=== PATIENT | female | born 1990 | race Caucasian/White ===

== ENCOUNTER 2016-05-19 13:24 | Emergency (ER) | payer OTHER ==
[2016-05-19 15:18] LABS: BASOPHILS # (AUTO) 0.1 10^3/uL (0.0-0.1); BASOPHILS % (AUTO) 0.7 %; EOSINOPHILS # (AUTO) 0.1 10^3/uL (0.0-0.7); EOSINOPHILS % (AUTO) 1.5 %; HCT - HEMATOCRIT 43.2 % (37.0-47.0); HGB - HEMOGLOBIN 15.1 g/dL (12.0-16.0); LYMPHOCYTES # (AUTO) 2.3 10^3/uL (1.5-3.5); LYMPHOCYTES % (AUTO) 27.7 %; MEAN CORPUSCULAR HEMOGLOBIN 30.7 pg (27.0-31.0); MEAN CORPUSCULAR HGB CONC 35.1 g/dL (32.0-36.0); MEAN CORPUSCULAR VOLUME 87.6 fL (81.0-99.0); MEAN PLATELET VOLUME 8.5 fL (7.9-10.8); MONOCYTES # (AUTO) 0.5 10^3/uL (0.0-1.0); MONOCYTES % (AUTO) 5.9 %; NEUTROPHILS # (AUTO) 5.3 10^3/uL (1.5-6.6); NEUTROPHILS % (AUTO) 64.2 %; RED BLOOD COUNT 4.93 10^6/uL (4.20-5.40); RED CELL DISTRIBUTION WIDTH 13.4 % (12.0-15.0); UNCORRECTED WHITE BLOOD COUNT 8.3 x10^3/uL; WHITE BLOOD COUNT 8.3 x10^3/uL (4.8-10.8)
[2016-05-19 15:32] LABS: ALBUMIN/GLOBULIN RATIO 1.4 (1.0-2.2); BILIRUBIN,TOTAL 1.5 mg/dL (0.2-1.0); CALCIUM 9.8 mg/dL (8.5-10.3); CREATININE 0.8 mg/dL (0.4-1.0); POTASSIUM 4.1 mmol/L (3.5-5.0); TOTAL PROTEIN 8.1 g/dL (6.7-8.2)
--- NOTE | 2016-05-19 15:47 | ED Physician Documentation ---
History of Present Illness - Stated complaint Stated Complaint: FEMALE - Chief complaint Chief Complaint: General - History obtained from History obtained from: Patient - History of Present Illness Timing: Today (25-year-old woman with long history of hematochezia. Had a colonoscopy with her GI doctor in [place] where she lives which showed mild colitis but nothing else. Had heavier hematochezia today with blood on the toilet paper and in the bowl. There is no rectal pain. She's had external hemorrhoids before and is sure that she does not have one currently. 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: None : None HEENT: None Psych: None Musculoskeletal: None Derm: None - Past Surgical History Past Surgical History: Yes /DESIGN TRANSFERRER: section - Present Medications Home Medications: Ambulatory Orders Medication Instructions Recorded Confirmed Levonorgestrel [Mirena] 1 each IY 05/19/16 - Allergies Allergies/Adverse Reactions: Allergies Allergy/AdvReac Type Severity Reaction Status Date / Time No Known Drug Allergies Allergy Verified 04/22/15 14:38 - Social History Does the pt smoke?: No Smoking Status: Never smoker Does the pt drink ETOH?: Yes Does the pt have substance abuse?: No - Immunizations Immunizations are current?: No PD ED PE NORMAL - Vitals Vital signs reviewed: Yes - General General: Alert and oriented X 3, No acute distress - Abdomen Abdomen: Soft, Non tender - Rectal Rectal: Pt declined - Neuro Neuro: Alert and oriented X 3, Normal speech Results - Vitals Vitals: Vital Signs - 24 hr 05/19/16 13:28 Temperature 36.1 C L Heart Rate 73 Respiratory 20 Rate Blood Pressure 134/70 H O2 Saturation 98 Oxygen O2 Source Room air - Labs Labs: Laboratory Tests 05/19/16 05/19/16 15:10 15:10 WBC 8.3 RBC 4.93 Hgb 15.1 Hct 43.2 MCV 87.6 MCH 30.7 MCHC 35.1 RDW 13.4 Plt Count 206 MPV 8.5 Neut # 5.3 Lymph # 2.3 [place] # 0.5 Eos # 0.1 Baso # 0.1 Absolute Nucleated RBC 0.00 Nucleated RBCs 0.0 Sodium 139 Potassium 4.1 Chloride 105 Carbon Dioxide 27 Anion Gap 7.0 BUN 16 Creatinine 0.8 Estimated GFR (MDRD) 88 L Glucose 89 Calcium 9.8 Total Bilirubin 1.5 H AST 18 ALT 19 Alkaline Phosphatase 72 Total Protein 8.1 Albumin 4.7 Globulin 3.4 Albumin/Globulin Ratio 1.4 Lipase 21 L PD MEDICAL DECISION MAKING - ED course ED course: 25-year-old woman with hematochezia, H&H is good as are her vital signs. She is sure she doesn't have an external hemorrhoid and declined rectal examination. Advised stool softening as she is chronically constipated. Departure - Departure Disposition: 01 Home, Self Care Clinical Impression: Hematochezia Condition: Good Record reviewed to determine appropriate education?: Yes Instructions: ED Hematochezia Stable Comments: I recommend taking [id number] Citrucel to soften your stools and drink plenty of water. Return if worse, follow up with your GI Dr. on return home. Your blood pressure was elevated today on check in to the emergency department. This does not mean that you have hypertension, it is a common phenomenon to check into the emergency department and have elevated blood pressure. I recommend that you see your primary care physician within the week to have it rechecked when you're feeling better.
[2016-05-19 15:55] VITALS: BP 134/81
== END 2016-05-19 15:53 | disposition home or self-care (01) ==
LOC: ED 13:24
DX: K92.1 Melena (principal); R03.0 Elevated blood-pressure reading, without diagnosis of hypertension
CPT/HCPCS: 36415; 80053; 83690; 85025; 99283

== ENCOUNTER 2018-08-05 20:53 | Outpatient (CLI) | payer OTHER | END 2018-08-05 20:54 | disposition critical access hospital (66) | LOC: EMS 20:53 | PROVIDERS: ATTEND Surgery | DX: R55 Syncope and collapse (principal); R10.9 Unspecified abdominal pain | CPT/HCPCS: A0425; A0429 ==

== ENCOUNTER 2018-08-05 21:20 | Emergency (ER) | payer OTHER ==
[2018-08-05 21:54] LABS: BILIRUBIN,URINE NEGATIVE (NEGATIVE); GLUCOSE, URINE (UA) NEGATIVE (NEGATIVE); KETONES,URINE (UA) NEGATIVE (NEGATIVE); LEUKOCYTE ESTERASE, URINE NEGATIVE (NEGATIVE); NITRITE,URINE NEGATIVE (NEGATIVE); OCCULT BLOOD,URINE NEGATIVE (NEGATIVE); PH,URINE 6.5 PH (5.0-7.5); PROTEIN,URINE NEGATIVE (NEGATIVE); UROBILINOGEN,URINE 0.2 (NORMAL) E.U./dL (NORMAL)
[2018-08-05 21:57] LABS: CLARITY,URINE CLEAR (CLEAR); HCG UR QUAL NEGATIVE
[2018-08-05 22:07] LABS: BASOPHILS % (AUTO) 0.5 %; EOSINOPHILS # (AUTO) 0.3 10^3/uL (0.0-0.7); EOSINOPHILS % (AUTO) 4.5 %; HGB - HEMOGLOBIN 13.9 g/dL (12.0-16.0); LYMPHOCYTES # (AUTO) 2.6 10^3/uL (1.5-3.5); LYMPHOCYTES % (AUTO) 34.3 %; MEAN CORPUSCULAR HEMOGLOBIN 31.1 pg (27.0-31.0); MEAN CORPUSCULAR HGB CONC 33.9 g/dL (32.0-36.0); MEAN CORPUSCULAR VOLUME 91.7 fL (81.0-99.0); MEAN PLATELET VOLUME 10.4 fL (7.9-10.8); MONOCYTES # (AUTO) 0.5 10^3/uL (0.0-1.0); MONOCYTES % (AUTO) 6.6 %; NEUTROPHILS # (AUTO) 4.1 10^3/uL (1.5-6.6); PLT - PLATELET COUNT 187 10^3/uL (130-450); RED BLOOD COUNT 4.47 10^6/uL (4.20-5.40); WHITE BLOOD COUNT 7.6 x10^3/uL (4.8-10.8)
[2018-08-05 22:21] LABS: ALBUMIN 4.5 g/dL (3.2-5.5); ALBUMIN/GLOBULIN RATIO 1.4 (1.0-2.2); BILIRUBIN,TOTAL 1.3 mg/dL (0.2-1.0); CALCIUM 9.3 mg/dL (8.5-10.3); CREATININE 0.7 mg/dL (0.4-1.0); TOTAL PROTEIN 7.7 g/dL (6.7-8.2)
--- NOTE | 2018-08-05 22:51 | ED Physician Documentation ---
History of Present Illness - Stated complaint Stated Complaint: NEAR SYNCOPE X SEVERAL MONTHS - Chief complaint Chief Complaint: Neuro - History obtained from History obtained from: Patient - History of Present Illness Timing: Today Pain level max: 0 Pain level now: 0 Improved by: nothing Worsened by: nothing - Additonal information Additional information: 27-year-old female presents to the emergency department stating that she felt lightheaded tonight. This lasted for approximately 1 minute. She has had similar episodes over the past week, most occurring at night. Does have a history of paroxysmal atrial fibrillation in the past. She states that she does feel her heart racing during these episodes as well. Has not taken her pulse. No chest pain. No possibility of . No nausea or vomiting. 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 - Present Medications Home Medications: Ambulatory Orders Medication Instructions Recorded Confirmed Levonorgestrel [Mirena] 1 each IY 05/19/16 - Allergies Allergies/Adverse Reactions: Allergies Allergy/AdvReac Type Severity Reaction Status Date / Time No Known Drug Allergies Allergy Verified 04/22/15 14:38 - Social History Does the pt smoke?: No Smoking Status: Never smoker Does the pt drink ETOH?: Yes Does the pt have substance abuse?: No - Immunizations Immunizations are current?: No PD ED PE NORMAL - Vitals Vital signs reviewed: Yes - General General: Alert and oriented X 3, No acute distress, Well developed/nourished - HEENT HEENT: Atraumatic, PERRL, Moist mucous membranes - Neck Neck: Supple, no meningeal sign - Cardiac Cardiac: RRR, No murmur. No: Strong equal pulses - Respiratory Respiratory: No respiratory distress, Clear bilaterally - Abdomen Abdomen: Soft, Non tender, Non distended - Derm Derm: Warm and dry, No rash - Extremities Extremities: No edema, No calf tenderness / cord - Neuro Neuro: Alert and oriented X 3 - Psych Psych: Normal mood, Normal affect Results - Vitals Vitals: Vital Signs - 24 hr 08/05/18 08/05/18 21:25 22:59 Temperature 36.6 C 36.2 C L Heart Rate 72 68 Respiratory 17 18 Rate Blood Pressure 120/83 H 103/78 O2 Saturation 97 97 Oxygen O2 Source Room air - EKG (time done) 2138 Rate: Rate (enter#) (75) Rhythm: NSR [place]: Normal Intervals: Normal [place] QRS: Normal Ischemia: Normal ST segments - Labs Labs: Laboratory Tests 08/05/18 08/05/18 08/05/18 21:35 21:35 21:44 WBC RBC Hgb Hct MCV MCH MCHC RDW Plt Count MPV Neut # (Auto) Lymph # (Auto) [place] # (Auto) Eos # (Auto) Baso # (Auto) Absolute Nucleated RBC Nucleated RBC % Sodium Potassium Chloride Carbon Dioxide Anion Gap BUN Creatinine Estimated GFR (MDRD) Glucose POC Whole Bld Glucose 80 Calcium Total Bilirubin AST ALT Alkaline Phosphatase Total Protein Albumin Globulin Albumin/Globulin Ratio Lipase Urine Color YELLOW Urine Clarity CLEAR Urine pH 6.5 Ur Specific [place] <=1.005 <=1.005 Urine Protein NEGATIVE Urine Glucose (UA) NEGATIVE Urine Ketones NEGATIVE Urine Occult Blood NEGATIVE Urine Nitrite NEGATIVE Urine Bilirubin NEGATIVE Urine Urobilinogen 0.2 (NORMAL) Ur Leukocyte Esterase NEGATIVE Ur Microscopic Review NOT INDICATED Urine Culture Comments NOT INDICATED Urine HCG, Qual NEGATIVE 08/05/18 08/05/18 21:59 21:59 WBC 7.6 RBC 4.47 Hgb 13.9 Hct 41.0 MCV 91.7 MCH 31.1 H MCHC 33.9 RDW 12.0 Plt Count 187 MPV 10.4 Neut # (Auto) 4.1 Lymph # (Auto) 2.6 [place] # (Auto) 0.5 Eos # (Auto) 0.3 Baso # (Auto) 0.0 Absolute Nucleated RBC 0.00 Nucleated RBC % 0.0 Sodium 139 Potassium 4.0 Chloride 104 Carbon Dioxide 27 Anion Gap 8.0 BUN 20 Creatinine 0.7 Estimated GFR (MDRD) 101 Glucose 90 POC Whole Bld Glucose Calcium 9.3 Total Bilirubin 1.3 H AST 18 ALT 18 Alkaline Phosphatase 73 Total Protein 7.7 Albumin 4.5 Globulin 3.2 Albumin/Globulin Ratio 1.4 Lipase 32 Urine Color Urine Clarity Urine pH Ur Specific [place] Urine Protein Urine Glucose (UA) Urine Ketones Urine Occult Blood Urine Nitrite Urine Bilirubin Urine Urobilinogen Ur Leukocyte Esterase Ur Microscopic Review Urine Culture Comments Urine HCG, Qual PD MEDICAL DECISION MAKING - ED course Complexity details: reviewed results, re-evaluated patient, considered differential, d/w patient ED course: 27-year-old female with what sounds like intermittent episodes of palpitations leading to lightheadedness. Possible recurrence of her paroxysmal atrial fibrillation. Recommend a Holter monitor and follow-up closely with her doctor. No findings on business continuity specialist here. She was asymptomatic while in the emergency department. Patient counseled regarding signs and symptoms for which I believe and urgent re-evaluation would be necessary. Patient with good understanding of and agreement to plan and is comfortable going home at this time This document was made in part using voice recognition software. While efforts are made to proofread this document, sound alike and grammatical errors may occur. Departure - Departure Disposition: 01 Home, Self Care Clinical Impression: Palpitations, Near syncope Condition: Good Health Concerns: lightheaded Plan of Treatment: holter monitor with PCP Care Goals: find cause Assessment: see dx Instructions: ED Palpitations, ED Near Syncope Unkn Follow-Up: your,doctor in 1 week [Other] Comments: Follow-up with your doctor for further care. You should have a Holter monitor as it is possible that you are having short runs of atrial fibrillation. Return if you worsen Discharge Date/Time: 08/05/18 22:58
[2018-08-05 22:59] VITALS: BP 103/78
== END 2018-08-05 22:58 | disposition home or self-care (01) ==
LOC: EDUNIT# → ED 21:20
DX: R55 Syncope and collapse (principal); R00.2 Palpitations; Z86.79 Personal history of other diseases of the circulatory system
CPT/HCPCS: 36415; 80053; 81001; 81003; 81025; 83690; 85025; 87086; 93005; 99282; 99283

== ENCOUNTER 2018-10-18 16:27 | Emergency (ER) | payer OTHER ==
--- NOTE | 2018-10-18 16:49 | ED Physician Documentation ---
History of Present Illness - Stated complaint Stated Complaint: FEMALE PX - Chief complaint Chief Complaint: Abd Pain - History obtained from History obtained from: Patient - History of Present Illness Timing: How many weeks ago (1) Pain level max: 8 Pain level now: 6 Improved by: nothing Worsened by: nothing - Additonal information Additional information: R pelvic pain x 1 week. feels similar to prior ovarian cysts. Has paraguard IUD. Is . 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 - Present Medications Home Medications: Ambulatory Orders Medication Instructions Recorded Confirmed Levonorgestrel [Mirena] 1 each IY 05/19/16 - Allergies Allergies/Adverse Reactions: Allergies Allergy/AdvReac Type Severity Reaction Status Date / Time No Known Drug Allergies Allergy Verified 10/18/18 16:33 - Social History Does the pt smoke?: No Smoking Status: Never smoker Does the pt drink ETOH?: Yes Does the pt have substance abuse?: No - Immunizations Immunizations are current?: No PD ED PE NORMAL - Vitals Vital signs reviewed: Yes - General General: Alert and oriented X 3, No acute distress - HEENT HEENT: Moist mucous membranes - Neck Neck: Supple, no meningeal sign - Cardiac Cardiac: RRR - Respiratory Respiratory: No respiratory distress, Clear bilaterally - Abdomen Abdomen: Soft, Other (TTP R pelvic, no tenderness at McBurney's point.) - Female Female : Pt declined - Back Back: No CVA TTP, No spinal TTP - Derm Derm: Warm and dry - Extremities Extremities: No edema - Neuro Neuro: Alert and oriented X 3 Results - Vitals Vitals: Vital Signs - 24 hr 10/18/18 10/18/18 16:30 18:55 Temperature 36.4 C L 36.8 C Heart Rate 120 H 87 Respiratory 19 18 Rate Blood Pressure 129/83 H 121/81 H O2 Saturation 97 97 Oxygen O2 Source Room air - Labs Labs: Laboratory Tests 10/18/18 10/18/1819 16:55 17:15 17:15 WBC 6.5 RBC 4.07 L Hgb 13.0 Hct 37.4 MCV 91.9 MCH 31.9 H MCHC 34.8 RDW 12.7 Plt Count 182 MPV 10.2 Neut # (Auto) 4.1 Lymph # (Auto) 1.8 [place] # (Auto) 0.4 Eos # (Auto) 0.1 Baso # (Auto) 0.0 Absolute Nucleated RBC 0.00 Nucleated RBC % 0.0 Sodium 139 Potassium 4.0 Chloride 106 Carbon Dioxide 26 Anion Gap 7.0 BUN 16 Creatinine 0.5 Estimated GFR (MDRD) 148 Glucose 118 H Calcium 8.9 Total Bilirubin 1.1 H AST 12 ALT 13 Alkaline Phosphatase 55 Total Protein 6.9 Albumin 4.1 Globulin 2.8 Albumin/Globulin Ratio 1.5 Lipase 32 Urine Color YELLOW Urine Clarity CLEAR Urine pH 6.0 Ur Specific [place] 1.015 Urine Protein NEGATIVE Urine Glucose (UA) NEGATIVE Urine Ketones NEGATIVE Urine Occult Blood NEGATIVE Urine Nitrite NEGATIVE Urine Bilirubin NEGATIVE Urine Urobilinogen 0.2 (NORMAL) Ur Leukocyte Esterase NEGATIVE Ur Microscopic Review NOT INDICATED Urine Culture Comments NOT INDICATED Urine HCG, Qual NEGATIVE - Rads (name of study) Pelvic ultrasound Radiology: Prelim report reviewed, EMP read contemporaneously, See rad report (Normal) PD MEDICAL DECISION MAKING - ED course Complexity details: reviewed results, re-evaluated patient, considered differential, d/w patient ED course: 28-year-old female presents to the emergency department with right pelvic pain. No acute findings on ultrasound or laboratory testing. She states that she has been working out recently and this is new for her. Possible that this is musculoskeletal? No evidence of appendicitis, ovarian torsion, PID. Her has been deployed since June and she has not been sexually active since that time. No risk factors for STDs. Patient counseled regarding signs and symptoms for which I believe and urgent re-evaluation would be necessary. Patient with good understanding of and agreement to plan and is comfortable going home at this time This document was made in part using voice recognition software. While efforts are made to proofread this document, sound alike and grammatical errors may occur. Departure - Departure Disposition: 01 Home, Self Care Clinical Impression: Pelvic pain Condition: Good Instructions: ED Pelvic Pain [facility] Follow-Up: Jose L Leong ARNP [Primary Care Provider] - Within 1 week Comments: The cause of your symptoms is unclear today. This may be related to musculoskeletal issue. Return if you worsen. Follow-up with your doctor in 1 week if not better. Discharge Date/Time: 10/18/18 19:01
[2018-10-18 16:58] LABS: BILIRUBIN,URINE NEGATIVE (NEGATIVE); GLUCOSE, URINE (UA) NEGATIVE (NEGATIVE); KETONES,URINE (UA) NEGATIVE (NEGATIVE); LEUKOCYTE ESTERASE, URINE NEGATIVE (NEGATIVE); NITRITE,URINE NEGATIVE (NEGATIVE); OCCULT BLOOD,URINE NEGATIVE (NEGATIVE); PROTEIN,URINE NEGATIVE (NEGATIVE); UROBILINOGEN,URINE 0.2 (NORMAL) E.U./dL (NORMAL)
[2018-10-18 17:04] LABS: CLARITY,URINE CLEAR (CLEAR); HCG UR QUAL NEGATIVE
[2018-10-18 17:24] LABS: BASOPHILS % (AUTO) 0.5 %; EOSINOPHILS # (AUTO) 0.1 10^3/uL (0.0-0.7); EOSINOPHILS % (AUTO) 2.2 %; LYMPHOCYTES # (AUTO) 1.8 10^3/uL (1.5-3.5); MEAN CORPUSCULAR HEMOGLOBIN 31.9 pg (27.0-31.0); MEAN CORPUSCULAR HGB CONC 34.8 g/dL (32.0-36.0); MEAN CORPUSCULAR VOLUME 91.9 fL (81.0-99.0); MEAN PLATELET VOLUME 10.2 fL (7.9-10.8); MONOCYTES # (AUTO) 0.4 10^3/uL (0.0-1.0); MONOCYTES % (AUTO) 6.8 %; NEUTROPHILS # (AUTO) 4.1 10^3/uL (1.5-6.6); NEUTROPHILS % (AUTO) 63.3 %; PLT - PLATELET COUNT 182 10^3/uL (130-450); RED BLOOD COUNT 4.07 10^6/uL (4.20-5.40); RED CELL DISTRIBUTION WIDTH 12.7 % (12.0-15.0); WHITE BLOOD COUNT 6.5 x10^3/uL (4.8-10.8)
[2018-10-18 17:37] LABS: ALBUMIN 4.1 g/dL (3.2-5.5); ALBUMIN/GLOBULIN RATIO 1.5 (1.0-2.2); BILIRUBIN,TOTAL 1.1 mg/dL (0.2-1.0); CALCIUM 8.9 mg/dL (8.5-10.3); CREATININE 0.5 mg/dL (0.4-1.0); TOTAL PROTEIN 6.9 g/dL (6.7-8.2)
--- NOTE | 2018-10-18 18:53 | Ultrasound Report ---
Reason: pelvic pain, R Procedure Date: 10/18/2018 Accession Number: [id number] / [id number] Procedure: US - Pelvic w/Transvag+Doppler Comp CPT Code: FULL RESULT: EXAM: PELVIC ULTRASOUND EXAM DATE: 10/18/2018 06:22 PM. CLINICAL HISTORY: Pelvic pain COMPARISON: None. TECHNIQUE: Realtime transabdominal pelvic scan performed to identify the uterus and adnexa and as an overview of other pelvic structures, followed by transvaginal scan to provide greater detail of the uterus and adnexa, with static image documentation. FINDINGS: Uterus: 8.5 x 5.2 x 5.7 cm, volume 133 cc. Retroverted position. Normal overall size and echotexture. Masses: None. Endometrium: 7 mm. Intrauterine device is in expected position. Cervix: Unremarkable. Right Ovary: 2.6 x 1.7 x 3.2 cm, volume 7.1 cc. Normal echotexture and blood flow. Left Ovary: 2.5 x 1.3 x 1.5 cm, volume 2.5 cc. Normal echotexture and blood flow. Free Fluid: There is a small amount of simple appearing free fluid within the pelvis. Other: None. IMPRESSION: Negative pelvic ultrasound. RADIA
[2018-10-18 18:56] VITALS: BP 121/81
== END 2018-10-18 19:01 | disposition home or self-care (01) ==
LOC: ED 16:27
DX: R10.2 Pelvic and perineal pain (principal); Z97.5 Presence of (intrauterine) contraceptive device; Z87.42 Personal history of other diseases of the female genital tract
CPT/HCPCS: 36415; 76830; 76856; 80053; 81001; 81003; 81025; 83690; 85025; 87086; 93975; 99283; 99284

== ENCOUNTER 2020-01-13 04:05 | Emergency (ER) | payer OTHER ==
--- NOTE | 2020-01-13 04:43 | ED Physician Documentation ---
PD HPI ABD PAIN - Stated complaint Stated Complaint: CHEST/BACK PX/NAUSEA - Chief complaint Chief Complaint: Abd Pain - History obtained from History obtained from: Patient - History of Present Illness Timing - onset: How many hours ago (2-3) Timing - details: Abrupt onset, Intermittant Pain level max: 8 Pain level now: 6 Quality: Pain Location: RUQ, Epigastric Radiation: Right flank Improved by: Other (nothing) Worsened by: Other (no exacerbating factors) Associated symptoms: Nausea. No: Fever, Vomiting, Diarrhea Similar symptoms before: Has not had sx before Review of Systems Constitutional: reports: Reviewed and negative Cardiac: reports: Reviewed and negative Respiratory: reports: Reviewed and negative GI: reports: Abdominal Pain, Nausea. denies: Vomiting : denies: Dysuria, Frequency, Now EGA Musculoskeletal: reports: Back pain PD PAST MEDICAL HISTORY - Past Medical History Past Medical History: Yes Cardiovascular: None Respiratory: None Neuro: None Endocrine/Autoimmune: None GI: None SLEEP TECH: None : None HEENT: None Psych: None Musculoskeletal: None Derm: None Other Past Medical History: Post abdominal hernia - Past Surgical History Past Surgical History: Yes General: Colonoscopy /SLEEP TECH: section - Present Medications Home Medications: Ambulatory Orders Medication Instructions Recorded Confirmed Levonorgestrel [Mirena] 1 each IY 05/19/16 - Allergies Allergies/Adverse Reactions: Allergies Allergy/AdvReac Type Severity Reaction Status Date / Time No Known Drug Allergies Allergy Verified 01/13/20 04:16 - Social History Does the pt smoke?: No Smoking Status: Never smoker Does the pt drink ETOH?: Yes Does the pt have substance abuse?: No - Immunizations Immunizations are current?: No - POLST Patient has POLST: No PD ED PE NORMAL - Vitals Vital signs reviewed: Yes - General General: Alert and oriented X 3, Well developed/nourished, Other (appears to be in waxing and waning discomfort during H&P) - HEENT HEENT: Moist mucous membranes - Cardiac Cardiac: RRR, No murmur - Respiratory Respiratory: No respiratory distress - Abdomen Abdomen: Soft, Non tender, Non distended - Back Back: No CVA TTP Results - Vitals Vitals: Vital Signs - 24 hr 01/13/20 01/13/20 08:08 08:26 Temperature 36.6 C Heart Rate 80 75 Respiratory 17 16 Rate Blood Pressure 113/76 110/63 O2 Saturation 97 100 Oxygen O2 Source Room air - Labs Labs: Laboratory Tests 01/13/20 01/13/20 01/13/20 04:49 05:03 05:03 WBC 9.3 RBC 4.32 Hgb 13.5 Hct 38.9 MCV 90.0 MCH 31.3 H MCHC 34.7 RDW 12.1 Plt Count 195 MPV 9.7 Neut # (Auto) 7.0 H Lymph # (Auto) 1.6 [place] # (Auto) 0.5 Eos # (Auto) 0.1 Baso # (Auto) 0.1 Absolute Nucleated RBC 0.00 Nucleated RBC % 0.0 Sodium 137 Potassium 4.2 Chloride 103 Carbon Dioxide 25 Anion Gap 9.0 BUN 16 Creatinine 0.6 Estimated GFR (MDRD) 119 Glucose 112 H Calcium 9.0 Total Bilirubin 1.0 AST 16 ALT 16 Alkaline Phosphatase 56 Total Protein 7.4 Albumin 4.1 Globulin 3.3 Albumin/Globulin Ratio 1.2 Lipase 25 Urine Color YELLOW Urine Clarity CLEAR Urine pH 6.0 Ur Specific [place] 1.015 Urine Protein NEGATIVE Urine Glucose (UA) NEGATIVE Urine Ketones NEGATIVE Urine Occult Blood NEGATIVE Urine Nitrite NEGATIVE Urine Bilirubin NEGATIVE Urine Urobilinogen 0.2 (NORMAL) Ur Leukocyte Esterase NEGATIVE Ur Microscopic Review NOT INDICATED Urine Culture Comments NOT INDICATED Urine HCG, Qual NEGATIVE - Rads (name of study) RUQ US Radiology: Prelim report reviewed, See rad report PD MEDICAL DECISION MAKING - ED course Complexity details: reviewed results, re-evaluated patient, considered differential, d/w patient ED course: asleep on reevaluation, reports feeling much better with only mild residual right back pain. declines analgesics im ED except toradol and declined rx analgesics. cholelithiasis on US but normal LFTs, lipase, and WBC and symptoms mild even before toradol given. instructed to return if worse, f/u with surgeon outpatient Departure - Departure Disposition: 01 Home, Self Care Clinical Impression: Biliary colic Condition: Good Instructions: ED Gallstone W Biliary Colic [facility] Chris Aldana MD [Provider Admit Priv/Credential] - Discharge Date/Time: 01/13/20 08:31
[2020-01-13] MEDS ORDERED: SODIUM CHLORIDE 0.9% 1,000 ML IV STA (04:44)
[2020-01-13 05:05] LABS: BILIRUBIN,URINE NEGATIVE (NEGATIVE); CLARITY,URINE CLEAR (CLEAR); GLUCOSE, URINE (UA) NEGATIVE (NEGATIVE); KETONES,URINE (UA) NEGATIVE (NEGATIVE); LEUKOCYTE ESTERASE, URINE NEGATIVE (NEGATIVE); NITRITE,URINE NEGATIVE (NEGATIVE); OCCULT BLOOD,URINE NEGATIVE (NEGATIVE); PROTEIN,URINE NEGATIVE (NEGATIVE); UROBILINOGEN,URINE 0.2 (NORMAL) E.U./dL (NORMAL)
[2020-01-13 05:07] LABS: HCG UR QUAL NEGATIVE
[2020-01-13 05:08] LABS: BASOPHILS # (AUTO) 0.1 10^3/uL (0.0-0.1); BASOPHILS % (AUTO) 0.5 %; EOSINOPHILS # (AUTO) 0.1 10^3/uL (0.0-0.7); HGB - HEMOGLOBIN 13.5 g/dL (12.0-16.0); LYMPHOCYTES # (AUTO) 1.6 10^3/uL (1.5-3.5); LYMPHOCYTES % (AUTO) 17.5 %; MEAN CORPUSCULAR HEMOGLOBIN 31.3 pg (27.0-31.0); MEAN CORPUSCULAR HGB CONC 34.7 g/dL (32.0-36.0); MEAN PLATELET VOLUME 9.7 fL (7.9-10.8); MONOCYTES # (AUTO) 0.5 10^3/uL (0.0-1.0); MONOCYTES % (AUTO) 5.1 %; NEUTROPHILS % (AUTO) 75.6 %; PLT - PLATELET COUNT 195 10^3/uL (130-450); RED BLOOD COUNT 4.32 10^6/uL (4.20-5.40); RED CELL DISTRIBUTION WIDTH 12.1 % (12.0-15.0); WHITE BLOOD COUNT 9.3 x10^3/uL (4.8-10.8)
[2020-01-13 05:21] LABS: ALBUMIN 4.1 g/dL (3.2-5.5); ALBUMIN/GLOBULIN RATIO 1.2 (1.0-2.2); CREATININE 0.6 mg/dL (0.4-1.0); TOTAL PROTEIN 7.4 g/dL (6.7-8.2)
[2020-01-13] MEDS ORDERED: KETOROLAC 30 MG/ML VIAL IVP STA (07:55)
[2020-01-13 08:26] VITALS: BP 110/63
--- NOTE | 2020-01-13 08:33 | Ultrasound Report ---
PROCEDURE: Abdomen Limited INDICATIONS: Abdominal pain TECHNIQUE: Real-time focused scanning was performed of the abdomen, with image documentation. COMPARISON: None FINDINGS: Visualized portions of the pancreas are within normal limits. No pancreatic ductal dilatation. Normal hepatic parenchymal echogenicity, echotexture, and contour. Normal caliber main portal vein. N o intrahepatic or extrahepatic biliary ductal dilatation. Normal caliber common duct No gallbladder wall thickening or pericholecystic fluid. There is a shadowing gallstone in the gallbl adder fundus measuring approximately 2.4 cm. There is another shadowing gallstone at the gallbladder neck measuring 2.1 cm. The gallstone within the neck is not mobile. Right kidney is within normal limits. IMPRESSION: Nonmobile gallstone within the gallbladder neck measuring 2.1 cm. Mobile gallstone within gallbladder fundus measuring 2.4 cm Distended gallbladder which raises suspicion for cholecystitis, though there is no wall thickening or pericholecystic fluid. Clinical correlation will be needed. Nuclear medicine HIDA scan could be cons idered if there is continued clinical concern for cholecystitis. Reviewed by: Bryon Kemp MD on 01/13/2020 8:31 AM PST Approved by: Bryon Kemp MD on 01/13/2020 8:31 AM PST Station ID: [id number]
== END 2020-01-13 08:31 | disposition home or self-care (01) ==
LOC: ED 04:05
DX: K80.70 Calculus of gallbladder and bile duct without cholecystitis without obstruction (principal)
CPT/HCPCS: 36415; 76705; 80053; 81001; 81003; 81025; 83690; 85025; 87086; 93005; 96374; 99284

== ENCOUNTER 2020-03-24 16:05 | Emergency (ER) | payer OTHER ==
--- NOTE | 2020-03-24 16:25 | ED Physician Documentation ---
History of Present Illness - Stated complaint Stated Complaint: FEMALE - Chief complaint Chief Complaint: Abd Pain - History obtained from History obtained from: Patient - Additonal information Additional information: at 4 weeks and 3 days by LMP with blood type known to be a positive. She found out she was yesterday. Today she has moderate bleeding and mild cramps and is worried about a miscarriage. 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: section - Present Medications Home Medications: Ambulatory Orders Medication Instructions Recorded Confirmed Pnv No.95/Ferrous Fum/Folic AC 1 each PO 03/24/20 [ Tablet] - Allergies Allergies/Adverse Reactions: Allergies Allergy/AdvReac Type Severity Reaction Status Date / Time No Known Drug Allergies Allergy Verified 03/24/20 16:19 - Social History Does the pt smoke?: No Smoking Status: Never smoker Does the pt drink ETOH?: Yes Does the pt have substance abuse?: No - Immunizations Immunizations are current?: No - POLST Patient has POLST: No PD ED PE NORMAL - Vitals Vital signs reviewed: Yes - General General: Alert and oriented X 3, No acute distress - HEENT HEENT: PERRL, EOMI - Neck Neck: Supple, no meningeal sign - Cardiac Cardiac: RRR, No murmur - Respiratory Respiratory: No respiratory distress, Clear bilaterally - Abdomen Abdomen: Normal bowel sounds, Soft, Non tender, Other (Unable to visualize IUP on bedside transabdominal ultrasound) - Derm Derm: Normal color, Warm and dry, No rash - Extremities Extremities: No edema, No calf tenderness / cord - Neuro Neuro: Alert and oriented X 3, Normal speech Results - Vitals Vitals: Vital Signs - 24 hr 03/24/20 16:13 Temperature 36.9 C Heart Rate 110 H Respiratory 18 Rate Blood Pressure 136/104 H O2 Saturation 99 Oxygen O2 Source Room air - Labs Labs: Laboratory Tests 03/24/20 03/24/20 03/24/20 16:47 16:47 16:47 WBC 6.0 RBC 4.71 Hgb 14.5 Hct 43.0 MCV 91.3 MCH 30.8 MCHC 33.7 RDW 12.4 Plt Count 227 MPV 10.0 Neut # (Auto) 3.3 Lymph # (Auto) 2.0 Schleicher # (Auto) 0.4 Eos # (Auto) 0.2 Baso # (Auto) 0.0 Absolute Nucleated RBC 0.00 Nucleated RBC % 0.0 Sodium 138 Potassium 4.1 Chloride 102 Carbon Dioxide 24 Anion Gap 12.0 BUN 18 Creatinine 0.8 Estimated GFR (MDRD) 85 L Glucose 86 Calcium 9.5 HCG, Quant 6.90 PD MEDICAL DECISION MAKING - ED course ED course: 29-year-old G3, P2 in early presents with vaginal bleeding. No findings on ultrasound. Beta-hCG only 6.9. Departure - Departure Disposition: 01 Home, Self Care Clinical Impression: Elevated serum hCG, Vaginal bleeding Condition: Good Record reviewed to determine appropriate education?: Yes Instructions: ED Miscarriage Poss Follow-Up: [facility] [Provider Group] Comments: As discussed, your beta-hCG today is 6.9. It is unclear what this means for the current , but reasonable to recheck it in a week.. Return if worsening.
[2020-03-24 16:54] LABS: BASOPHILS % (AUTO) 0.7 %; EOSINOPHILS # (AUTO) 0.2 10^3/uL (0.0-0.7); HGB - HEMOGLOBIN 14.5 g/dL (12.0-16.0); LYMPHOCYTES % (AUTO) 33.4 %; MEAN CORPUSCULAR HEMOGLOBIN 30.8 pg (27.0-31.0); MEAN CORPUSCULAR HGB CONC 33.7 g/dL (32.0-36.0); MEAN CORPUSCULAR VOLUME 91.3 fL (81.0-99.0); MONOCYTES # (AUTO) 0.4 10^3/uL (0.0-1.0); MONOCYTES % (AUTO) 6.9 %; NEUTROPHILS # (AUTO) 3.3 10^3/uL (1.5-6.6); NEUTROPHILS % (AUTO) 55.8 %; PLT - PLATELET COUNT 227 10^3/uL (130-450); RED BLOOD COUNT 4.71 10^6/uL (4.20-5.40); RED CELL DISTRIBUTION WIDTH 12.4 % (12.0-15.0)
[2020-03-24 17:05] LABS: CALCIUM 9.5 mg/dL (8.5-10.3); CREATININE 0.8 mg/dL (0.4-1.0); POTASSIUM 4.1 mmol/L (3.5-5.0)
--- NOTE | 2020-03-24 18:24 | Ultrasound Report ---
PROCEDURE: OB First Trimester INDICATIONS: VB 4w3d Per technologist note, hCG is only 6.9m/u.mL. OUTSIDE/PRIOR DATING DATA: Last menstrual period (LMP): 02/22/2020. LMP-based estimated date of delivery (KASSANDRA): TECHNIQUE: Real-time scanning was performed of the fetus and maternal pelvic organs, with image documentation. COMPARISON: 10/18/2018 FINDINGS: Retroverted uterus likely within normal limits in size. Punctate calcification within the distal uter ine fundus which is nonspecific but may represent sequela of prior trauma/infection. There is no intr auterine noted on today's exam. The endometrium is without focal thickening or cystic yen e. The right ovary measures 2.2 x 0.9 x 1.8 cm. Physiologic follicles without suspicious cystic or solid mass. The left ovary measures 1.8 x 1.2 x 1.6 cm. There are physiologic follicles without evidence o f suspicious cystic or solid mass. There is trace amount of simple appearing free fluid. IMPRESSION: No evidence of an intrauterine or ectopic . This is consistent with of unknown loc ation given positive test. Recommend clinical follow-up and trending of hCG. Ultrasound as clinically necessary. Trace amount of simple free fluid within the pelvis. This is likely physiologic. Reviewed by: Mynor Morgan DO on 03/24/2020 5:23 PM [facility] Approved by: Mynor Morgan DO on 03/24/2020 5:23 PM [facility] Station ID: [id number]
--- NOTE | 2020-03-24 18:24 | Ultrasound Report ---
PROCEDURE: OB First Trimester INDICATIONS: VB 4w3d Per technologist note, hCG is only 6.9m/u.mL. OUTSIDE/PRIOR DATING DATA: Last menstrual period (LMP): 02/22/2020. LMP-based estimated date of delivery (KASSANDRA): TECHNIQUE: Real-time scanning was performed of the fetus and maternal pelvic organs, with image documentation. COMPARISON: 10/18/2018 FINDINGS: Retroverted uterus likely within normal limits in size. Punctate calcification within the distal uter ine fundus which is nonspecific but may represent sequela of prior trauma/infection. There is no intr auterine noted on today's exam. The endometrium is without focal thickening or cystic yen e. The right ovary measures 2.2 x 0.9 x 1.8 cm. Physiologic follicles without suspicious cystic or solid mass. The left ovary measures 1.8 x 1.2 x 1.6 cm. There are physiologic follicles without evidence o f suspicious cystic or solid mass. There is trace amount of simple appearing free fluid. IMPRESSION: No evidence of an intrauterine or ectopic . This is consistent with of unknown loc ation given positive test. Recommend clinical follow-up and trending of hCG. Ultrasound as clinically necessary. Trace amount of simple free fluid within the pelvis. This is likely physiologic. Reviewed by: Mynor Morgan DO on 03/24/2020 5:22 PM [facility] Approved by: Mynor Morgan DO on 03/24/2020 5:22 PM [facility] Station ID: [id number]
[2020-03-24 18:31] VITALS: BP 129/79
== END 2020-03-24 18:31 | disposition home or self-care (01) ==
LOC: ED 16:05
DX: O46.91 Antepartum hemorrhage, unspecified, first trimester (principal); Z3A.01 Less than 8 weeks gestation of pregnancy
CPT/HCPCS: 36415; 80048; 84702; 85025; 99284

== ENCOUNTER 2021-09-19 08:41 | Outpatient (CLI) | payer OTHER ==
--- NOTE | 2021-09-19 10:16 | MRI Report ---
PROCEDURE: Brain W/O INDICATIONS: MIGRAINE TECHNIQUE: Noncontrast axial T1 spin echo, axial T2 fast spin echo, sagittal and axial FLAIR, coronal T2 fast sp in echo, axial gradient echo, axial diffusion and ADC through the brain. COMPARISON: None. FINDINGS: Image quality: Excellent. CSF Spaces: Basal cisterns are patent. No extra-axial fluid collections. Ventricles are normal in size and shape. Brain: No intracranial masses or hemorrhage. Anderson/white matter interface is normal. Brainstem appe ars normal. Diffusion-weighted images demonstrate no acute ischemic insult. No chronic ischemic ins ults. Normal intravascular flow voids are present. Skull and face: Calvarium has normal marrow signal. Orbits appear normal. Sinuses: Sinuses and mastoids are clear. IMPRESSION: 1. No explanation for migraine. 2. No acute process. No recent infarct. Reviewed by: Brayan Valdes MD on 09/19/2021 10:14 AM PDT Approved by: Brayan Valdes MD on 09/19/2021 10:14 AM PDT Station ID: [id number]
== END 2021-09-19 08:42 | disposition home or self-care (01) ==
LOC: DI 08:41
PROVIDERS: ATTEND Student in an Organized Health Care Education/Training Program
DX: G43.909 Migraine, unspecified, not intractable, without status migrainosus (principal)

== ENCOUNTER 2023-04-21 15:45 | Outpatient (CLI) | payer OTHER ==
[2023-04-21 21:18] LABS: BASOPHILS % (AUTO) 0.7 %; EOSINOPHILS # (AUTO) 0.1 10^3/uL (0.0-0.7); HCT - HEMATOCRIT 39.3 % (37.0-47.0); HGB - HEMOGLOBIN 13.6 g/dL (12.0-16.0); LYMPHOCYTES # (AUTO) 1.8 10^3/uL (1.5-3.5); LYMPHOCYTES % (AUTO) 29.4 %; MEAN CORPUSCULAR HEMOGLOBIN 30.8 pg (27.0-31.0); MEAN CORPUSCULAR HGB CONC 34.6 g/dL (32.0-36.0); MEAN CORPUSCULAR VOLUME 89.1 fL (81.0-99.0); MEAN PLATELET VOLUME 10.8 fL (7.9-10.8); MONOCYTES # (AUTO) 0.5 10^3/uL (0.0-1.0); MONOCYTES % (AUTO) 8.5 %; NEUTROPHILS # (AUTO) 3.6 10^3/uL (1.5-6.6); NEUTROPHILS % (AUTO) 59.2 %; PLT - PLATELET COUNT 226 10^3/uL (130-450); RED BLOOD COUNT 4.41 10^6/uL (4.20-5.40); RED CELL DISTRIBUTION WIDTH 12.6 % (12.0-15.0); WHITE BLOOD COUNT 6.1 x10^3/uL (4.8-10.8)
[2023-04-21 21:27] LABS: ALBUMIN 4.2 g/dL (3.2-5.5); ALBUMIN/GLOBULIN RATIO 1.6 (1.0-2.2); CALCIUM 9.6 mg/dL (8.5-10.3); CREATININE 0.6 mg/dL (0.6-1.3); MAGNESIUM 1.9 mg/dL (1.7-2.3); TOTAL PROTEIN 6.9 g/dL (6.4-8.9)
== END 2023-04-21 16:00 | disposition home or self-care (01) ==
LOC: LAB.N 15:45
PROVIDERS: ATTEND Specialist
DX: R42 Dizziness and giddiness (principal)
CPT/HCPCS: 36415; 80053; 83735; 85025